=== PATIENT | male | born 1995 | race Caucasian/White ===

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

== ENCOUNTER 2017-02-11 22:10 | Emergency (ER) | payer SELFPAY ==
[~2017-02-11] VITALS: Ht 165.1 cm; Wt 70.8 kg
[2017-02-11 22:18] VITALS: BP 130/81; Ht 165.1 cm; Wt 70.8 kg
== END 2017-02-12 04:11 | disposition left against medical advice (07) ==
LOC: ED 22:10
DX: Z53.21 Procedure and treatment not carried out due to patient leaving prior to being seen by health care provider (principal)

== ENCOUNTER 2018-07-20 19:31 | Emergency (ER) | payer SELFPAY ==
[~2018-07-20] VITALS: Ht 167.6 cm; Wt 68.5 kg
[2018-07-20 19:40] VITALS: BP 149/81; Ht 167.6 cm; Wt 68.5 kg
== END 2018-07-20 20:21 | disposition left against medical advice (07) ==
LOC: ED 19:31
DX: Z53.21 Procedure and treatment not carried out due to patient leaving prior to being seen by health care provider (principal)

== ENCOUNTER 2018-07-20 21:19 | Emergency (ER) | payer SELFPAY ==
[~2018-07-20] VITALS: Ht 165.1 cm; Wt 68.0 kg
[2018-07-20 21:26] VITALS: Ht 165.1 cm; Wt 68.0 kg
[2018-07-20 22:29] VITALS: BP 128/73
== END 2018-07-20 22:29 | disposition home or self-care (01) ==
LOC: ED 21:19
DX: G51.0 Bell's palsy (principal)
CPT/HCPCS: J7512

== ENCOUNTER 2019-09-30 22:16 | Emergency (ER) | payer OTHER ==
[~2019-09-30] VITALS: Ht 167.6 cm; Wt 77.6 kg
[2019-09-30 22:24] VITALS: BP 136/78; Ht 167.6 cm; Wt 77.6 kg
== END 2019-09-30 23:11 | disposition home or self-care (01) ==
LOC: ED 22:16
DX: S09.8XXA Other specified injuries of head, initial encounter (principal); W18.09XA Striking against other object with subsequent fall, initial encounter; Y93.89 Activity, other specified; Y92.89 Other specified places as the place of occurrence of the external cause; Y99.8 Other external cause status